=== PATIENT | male | born 2000 | race Caucasian/White ===

== ENCOUNTER 2024-04-13 20:39 | Emergency (ER) | payer BC, OTHER ==
[2024-04-13] MEDS ORDERED: Sulfamethoxazole/Trimethoprim 800-160 MG Tab PO ONE (20:40)
[2024-04-13] MEDS ORDERED: Lidocaine 2% 20 ML MDV INFILT ONE (20:40)
== END 2024-04-13 21:35 | disposition home or self-care (01) ==
LOC: FB.ED 20:39
DX: L02.511 Cutaneous abscess of right hand (principal); F17.210 Nicotine dependence, cigarettes, uncomplicated
CPT/HCPCS: 26010; 99283-25; A9270-GY